=== PATIENT | female | born 1955 | race Caucasian/White ===

== ENCOUNTER 2016-06-10 21:07 | Emergency (ER) | payer MEDICARE ==
[~2016-06-10 21:07] MED LIST: AMB10 PO; ATV1 PO; BENTYL10 PO; C1 PO; C25 PO; CELEXA20 PO; L20 PO; LOM PO; LORT7 PO; MELATONIN1 M1 PO; PCET PO; PREMARIN 1.251.25 MG OR; PRIN10 PO; PRIN5 PO; TRAZ100 PO; VICODINTAB PO; WELLSR150 PO; [UNRECOGNIZED DRUG - OTHER] PO
== END 2016-06-10 21:15 | disposition home or self-care (01) ==
LOC: ER 21:07
DX: S90.31XA Contusion of right foot, initial encounter (principal); I10 Essential (primary) hypertension; Z88.5 Allergy status to narcotic agent; Z79.01 Long term (current) use of anticoagulants
CPT/HCPCS: 73630-RT; 99283